=== PATIENT | male | born 1955 | race Caucasian/White ===

== ENCOUNTER 2018-03-20 01:32 | Emergency (ER) | payer OTHER ==
[~2018-03-20] VITALS: Ht 182.9 cm; Wt 99.8 kg
[~2018-03-20 01:32] MED LIST: BENICAR HCT 201 EACH PO; CENTRUM ULTRA1 EAC1 PO; GLUCOSAMINE &1 EAC1 PO
[2018-03-20] MEDS ORDERED: PERCOCET 5-3251 EACH PO (05:29)
[2018-03-21] MEDS ORDERED: FLOMAX0.4 MG PO (10:16)
[2018-03-21] MEDS ORDERED: ONDANSETRON ODT8 MG PO (13:03)
[2018-03-21] MEDS ORDERED: KETOROLAC TROME10 MG PO (13:03)
== END 2018-03-20 05:51 | disposition home or self-care (01) ==
LOC: ED 01:32
DX: N20.1 Calculus of ureter (principal); N13.4 Hydroureter; I10 Essential (primary) hypertension; Z91.018 Allergy to other foods; Z79.899 Other long term (current) drug therapy
CPT/HCPCS: 74176; 80053; 81001; 83690; 85025; 96361; 96374; 96375; 96376; 99284-25; J1170; J2405; J7030

== ENCOUNTER 2018-03-21 10:05 | Emergency (ER) | payer OTHER ==
[~2018-03-21] VITALS: Ht 182.9 cm; Wt 99.8 kg
[~2018-03-21 10:05] MED LIST changes: +PERCOCET 5-3251 EACH PO
--- OUTSIDE RECORDS SUMMARY | 2018-03-21 10:10 | XMS ---
PreManage Notification: BEE ARAUJO Security Nursing Student Events No recent Security Events currently on file CRITERIA MET - [facility] - 2 Visits in 30 Days CARE PROVIDERS Mary Kate Gonzalez PA-C Treatment Current PHONE: Unknown PCP_Unattributed Primary Care Current PHONE: Unknown Mike has no Care Guidelines for this patient. ETiki VISIT COUNT (12 MO.) 2 [facility] TOTAL 2 NOTE: Visits indicate total known visits. ED/UCC VISIT TRACKING (12 MO.) 03/21/2018 10:06 [facility] [place] TYPE: Emergency COMPLAINT: - ABD PAIN 03/20/2018 01:33 [facility] [place] TYPE: Emergency COMPLAINT: - L FLANK PAIN,NON INJURY INPATIENT VISIT TRACKING (12 MO.) No inpatient visits to display in this time frame [email or web address]
[2018-03-21] MEDS ORDERED: FLOMAX0.4 MG PO (10:16)
[2018-03-21] MEDS ORDERED: KETOROLAC TROME10 MG PO (13:03)
[2018-03-21] MEDS ORDERED: ONDANSETRON ODT8 MG PO (13:03)
[2018-03-22] MEDS ORDERED: PROMETHAZINE HC25 M1 PO (06:40)
[2018-03-22] MEDS ORDERED: PHENERGAN25 MG PR (06:40)
== END 2018-03-21 13:25 | disposition home or self-care (01) ==
LOC: ED 10:05
DX: N20.0 Calculus of kidney (principal); I10 Essential (primary) hypertension; Z87.442 Personal history of urinary calculi; Z90.49 Acquired absence of other specified parts of digestive tract; Z91.018 Allergy to other foods; Z79.899 Other long term (current) drug therapy
CPT/HCPCS: 81001; 96361; 96374; 96375; 96376; 99284-25; J1170; J1885; J2060; J2405; J7030

== ENCOUNTER 2018-03-22 04:13 | Emergency (ER) | payer OTHER ==
[~2018-03-22] VITALS: Ht 182.9 cm; Wt 100.0 kg
[~2018-03-22 04:13] MED LIST changes: +FLOMAX0.4 MG PO; +KETOROLAC TROME10 MG PO; +ONDANSETRON ODT8 MG PO
--- OUTSIDE RECORDS SUMMARY | 2018-03-22 04:18 | XMS ---
PreManage Notification: BEE ARAUJO Security [employer] Events No recent Security Events currently on file CRITERIA MET - [facility] - 2 Visits in 30 Days CARE PROVIDERS CATRACHITO SHAY [facility] 03/21/2018-Current PHONE: Unknown Mary Kate Gonzalez PA-C Treatment Current PHONE: Unknown PCP_Unattributed Primary Care Current PHONE: Unknown Mike has no Care Guidelines for this patient. ETiki VISIT COUNT (12 MO.) 3 [facility] TOTAL 3 NOTE: Visits indicate total known visits. ED/UCC VISIT TRACKING (12 MO.) 03/22/2018 04:13 [facility] [place] TYPE: Emergency COMPLAINT: - VOMITING 03/21/2018 10:06 [facility] [place] TYPE: Emergency COMPLAINT: - ABD PAIN 03/20/2018 01:33 [facility] [place] TYPE: Emergency COMPLAINT: - L FLANK PAIN,NON INJURY INPATIENT VISIT TRACKING (12 MO.) No inpatient visits to display in this time frame [email or web address]
[2018-03-22] MEDS ORDERED: PROMETHAZINE HC25 M1 PO (06:40)
[2018-03-22] MEDS ORDERED: PHENERGAN25 MG PR (06:40)
== END 2018-03-22 07:15 | disposition home or self-care (01) ==
LOC: ED 04:13
DX: N20.1 Calculus of ureter (principal); I10 Essential (primary) hypertension; Z87.442 Personal history of urinary calculi; Z90.49 Acquired absence of other specified parts of digestive tract; Z91.018 Allergy to other foods; Z79.899 Other long term (current) drug therapy
CPT/HCPCS: 96374; 96375; 99283-25; J1885; J2550; J7030

== ENCOUNTER 2018-09-08 07:37 | Day surgery (SDC) | payer OTHER ==
[~2018-09-08] VITALS: Ht 182.9 cm; Wt 102.1 kg
[~2018-09-08 07:37] MED LIST changes: +PHENERGAN25 MG PR; +PROMETHAZINE HC25 M1 PO
--- NOTE | 2018-09-08 09:05 | NUR ---
09/08/18 0905 Alsiia Chester 0902- PT ARRIVES TO PACU EASILY AROUSABLE TO VOICE. RESP EVEN AND UNLABORED. OXYGEN SAT MID 90'S ON 20 VIA NC. OXYGEN TITRATED TO OFF. OXYGEN SAT LOW TO MID 90'S ON RA. 0904- PT PASSING FLATUS.
--- NOTE | 2018-09-10 16:02 | OR ---
[facility] [address], [place] [address] Signed DATE OF OPERATION: 09/08/2018 SURGEON: Ronda Amin MD PREOPERATIVE DIAGNOSES: 1. Episodic rectal bleeding. 2. History of tubular adenoma at rectosigmoid, 2016. POSTOPERATIVE DIAGNOSES: 1. Sigmoid diverticulosis. 2. Polyps x2 (cecal and at 45 cm). 3. Minimal internal hemorrhoidal changes. PROCEDURE PERFORMED: Total colonoscopy to cecum with cold morcellation polypectomy x2. ANESTHESIA: Intravenous sedation fentanyl 150 mcg and Versed 6 mg. INDICATION: This 62-year-old white man remains a patient of Dr. Pio Shay. He underwent colonoscopy and had a tubular adenoma in 2016 at the rectosigmoid and hyperplastic polyp of the sigmoid itself. He has had no bleeding, diarrhea or constipation. It is noted that he does have celiac disease. He was seen to have a small amount of bleeding 3-4 months ago, which he attributed to hemorrhoids. He has no family history of colon cancer. He is admitted at this time to undergo colonoscopy. He understands the risks of bleeding, infection, and perforation. FINDINGS: He had no sign of external hemorrhoidal disease. Retroflexed view did show some internal hemorrhoidal changes, but not much. He had diverticular change of the sigmoid. There were 2 small polyps, one at 45 cm, the other at the cecum, both were excised with cold morcellation technique. The remaining colon was normal. DESCRIPTION OF PROCEDURE: The patient was brought to the endoscopy suite and placed in lateral decubitus position, given intravenous sedation to the point of slurred speech and nystagmus. Digital rectal examination was normal. An Olympus video colonoscope was passed in the rectum and manipulated throughout the Electronically Signed By: RONDA AMIN MD 09/10/18 1602 PATIENT NAME: BEE ARAUJO OPERATIVE REPORT DATE OF : 55 REPORT #: [id number] PHYSICIAN: RONDA AMIN MD PCP: PIO SHAY DO REPORT IS CONFIDENTIAL AND NOT TO BE RELEASED WITHOUT AUTHORIZATION [facility] [address], [place] [address] Signed colon noting diverticular change of the sigmoid and left colon. Scope was ultimately advanced to the cecum. Biopsy forceps was used to elevate the mucosa behind the ileocecal valve. There was a small polyp of the cecum, at least it appeared to be on narrow band imaging. This was excised with cold morcellation technique. The scope was then withdrawn and examination throughout showed no sign of abnormality until approximately 45 cm from the anal verge. A small sessile polyp was noted. This was excised with cold morcellation technique. Further withdrawal of scope showed no other abnormality. Retroflexed view of the rectum showed some minimal internal hemorrhoidal changes but nothing acute and certainly no sign of fissure or other abnormality. The scope was removed. The patient was taken to recovery room in good condition. CONCLUDING DIAGNOSES: 1. Polyps x2. 2. Diverticulosis. PLAN: Recommend high-fiber diet. If recurrent bleeding, consideration will be made for hemorrhoidal banding in the office setting. MD NEREYDA Mar/MARY /[id number] cc: Pio Shay DO Copies: PIO SHAY DO ~ Electronically Signed By: RONDA AMIN MD 09/10/18 1602 PATIENT NAME: BEE ARAUJO OPERATIVE REPORT DATE OF : 55 REPORT #: [id number] PHYSICIAN: RONDA AMIN MD PCP: PIO SHAY DO REPORT IS CONFIDENTIAL AND NOT TO BE RELEASED WITHOUT AUTHORIZATION
== END 2018-09-08 10:10 | disposition home or self-care (01) ==
LOC: OPS 07:37
PROVIDERS: Surgery
PROC: 0DBE8ZZ Excision of Large Intestine, Via Natural or Artificial Opening Endoscopic (ICD-10-PCS; 2018-09-08)
PROC: 0DBH8ZZ Excision of Cecum, Via Natural or Artificial Opening Endoscopic (ICD-10-PCS; principal; 2018-09-08 08:30)
DX: D12.6 Benign neoplasm of colon, unspecified (principal); K64.8 Other hemorrhoids; K57.30 Diverticulosis of large intestine without perforation or abscess without bleeding; I10 Essential (primary) hypertension; E78.5 Hyperlipidemia, unspecified; Z88.8 Allergy status to other drugs, medicaments and biological substances; Z79.899 Other long term (current) drug therapy; Z86.010 Personal history of colon polyps
CPT/HCPCS: 99153; G0500; J2250; J3010; J7120

== ENCOUNTER 2024-03-30 07:35 | Day surgery (SDC) | payer MEDICARE, OTHER ==
[~2024-03-30] VITALS: Ht 182.9 cm; Wt 95.5 kg
[~2024-03-30 07:35] MED LIST changes: +CALCIPOTRIENE60 G3 TP; +CENTRUM SILVER1 EAC7 PO; +FLUOROURACIL40 GM TOP; +IBLOOD GLUCOSE TEST STRIP 1 EA TEST VI PRN; +LACTATED RINGER'S 1,000 ML IV SCH; +LIDOCAINE HCL 1% 5 ML SDV INJ ONE; +MIDAZOLAM HCL 5 MG/5 ML VIAL IV PRN; +TRIBENZOR 40-11 EAC1 PO; +fentaNYL citrate 100 MCG/2 ML VIAL IV PRN
[2024-03-30 07:54] VITALS: BP 145/77
--- NOTE | 2024-03-30 08:09 | NUR ---
PT NOT AVAILABLE FOR VISIT. PROVIDED PRAYER.
--- NOTE | 2024-03-30 08:30 | NUR ---
PT LAYIHNG IN BED WATCHING TV. UPDATE ON SURGERY TIME. NO OTHER NEEDS AT THIS TIME. CALL LIGHT WITHIN REACH.
[2024-03-30] MEDS ORDERED: MIDAZOLAM HCL 5 MG/5 ML VIAL ONE (08:37)
[2024-03-30] MEDS ORDERED: fentaNYL citrate 100 MCG/2 ML VIAL ONE (08:37)
--- NOTE | 2024-03-30 09:35 | NUR ---
03/30/24 0935 Quin Gamboa 0922-PT ARRIVES TO PACU RESTING ON HIS LT SIDE, PT RESPONISVE TO STIMULI BUT RESTING W/ EYES CLOSED, VSS ON 3L VIA NC, RR EVEN AND UNLABORED. 0933-PT AWAKENS TO VOICE, PT DENIES PAIN OR NAUSEA, O2 TITRATED TO 1L VS REMAIN STABLE, RR EVEN AND UNLABORED. PT ENCOURAGED TO PASS GAS.
[2024-03-30 10:01] VITALS: BP 117/72
--- NOTE | 2024-03-30 20:53 | OR ---
[facility] [address], [place] [address] Signed DATE OF OPERATION: 03/30/2024 SURGEON: Ronda Amin MD PREOPERATIVE DIAGNOSIS: History of polyps in 2019. POSTOPERATIVE DIAGNOSES: 1. Questionable polyp versus hyperplasia of cecum. 2. HX OF GRANULOMA ANNULARE PROCEDURE: Total colonoscopy to cecum with cold morcellation polypectomy x1. ANESTHESIA: Intravenous sedation; fentanyl 100 mcg and Versed 7 mg. INDICATION: This 68-year-old white man is a patient of Dr. Brett Rapp. He underwent colonoscopy by [facility] in 2019 where he was found to have two polyps, one on the cecum and the other at 45 cm as well as internal hemorrhoidal changes. Pathology report confirmed a tubular adenoma at 45 cm but no abnormality of the cecal lesion. He has no current symptoms of bleeding, diarrhea, or constipation. He is admitted to undergo colonoscopy for surveillance at this time. FINDINGS: The prep was excellent. Complete colonoscopy was undertaken to the cecum. There was an area of hyperplasia or polyp in the cecum once again, this was excised. The remaining colon was essentially normal except for scattered diverticula of the sigmoid. Additionally noted, however, were extensive cutaneous lesions initially suggestive of tinea corpora but which were later noted to have been evaluated and treated and biopsied confirming a diagnosis of granuloma annulare; lesions were exensive and not to be on the back, hands and elsewhere. He remains under the ongoing care of a edger operator in [place]. DESCRIPTION OF PROCEDURE: The patient was brought to the endoscopy suite and given intravenous sedation to the point of slurred speech and nystagmus with full cardiopulmonary monitoring. Digital rectal examination was normal. Electronically Signed By: RONDA AMIN MD 03/30/242052 PATIENT NAME: BEE ARAUJO OPERATIVE REPORT DATE OF : 55 REPORT #: [id number] PHYSICIAN: RONDA AMIN MD PCP: BRETT RAPP MD REPORT IS CONFIDENTIAL AND NOT TO BE RELEASED WITHOUT AUTHORIZATION [facility] [address], [place] [address] Signed An Olympus video colonoscope was passed in the rectum and manipulated throughout the colon ultimately intubating the cecum itself. The ileocecal valve and appendiceal orifice were normal. There was a small area of either hyperplasia or small polyp of the cecum, which was excised with cold morcellation technique. Scope was further withdrawn and examination showed no other abnormality other than scattered diverticula of the sigmoid. Retroflexed view was normal. Scope was removed. The anesthesia monitoring nurse noted a small lesion dorsum of his left hand. Further inspection showed this to be a lesion consistent with tinea corporis and examination of his back and elsewhere showed extensive lesions highly typical of tinea corporis. Subsequent discussion with the patient and his confirmed that he had dermatologice evaluation in [place] who biopsied the lesions and found them to be granuloma annulare ( a mimic of tinea) and he maintains follow up with the edger operator on a routine basis. MD NEREYDA Mar/MARY /[id number] cc: Brett Rapp MD Copies: BRETT RAPP MD ~ Electronically Signed By: RONDA AMIN MD 03/30/242052 PATIENT NAME: BEE ARAUJO OPERATIVE REPORT DATE OF : 55 REPORT #: [id number] PHYSICIAN: RONDA AMIN MD PCP: BRETT RAPP MD REPORT IS CONFIDENTIAL AND NOT TO BE RELEASED WITHOUT AUTHORIZATION
--- NOTE | 2024-03-31 12:37 | PATH ---
[facility] [address] [place], [place] [address] Signed SPECIMEN(S): A CECUM BIOPSY SPECIMEN SOURCE: A. CECUM BIOPSY CLINICAL HISTORY: 2019 tubular adenoma at 45 cm, possible cecal polyp, diverticuli FINAL PATHOLOGIC DIAGNOSIS: Cecum, biopsy: - Colonic mucosa with no significant pathologic changes BRP MICROSCOPIC EXAMINATION: Histologic sections of all submitted blocks are examined by light microscopy. These findings, together with the gross examination, support the pathologic diagnosis. GROSS DESCRIPTION: The specimen, labeled and designated "Dorcas, cecum biopsy," is received in formalin and consists of two mazariegos soft tissue fragments, ranging from 0.3-0.4 cm. Entirely submitted in (A1). VB (under the direct supervision of a pathologist) The Gross Description was prepared using a voice recognition system. The report was reviewed for accuracy; however, sound-alike word errors, addition and/or deletions may occur. If there is any question about this report, please contact Client Services. ADDITIONAL NOTES: Immunohistochemical and/or in situ hybridization studies if performed in this case included appropriate positive controls that reacted as expected. This test was developed and its performance characteristics determined by [employer]. It has not been cleared or approved by the U.S. Food and Drug Administration. The FDA has determined that such clearance or approval is not necessary. This test is used for clinical purposes. It should not be regarded as investigational or for research. [employer] [facility] [employer] is certified under the Clinical Laboratory Improvement Amendments of 1988 (CLIA) as qualified to perform high complexity clinical laboratory testing. PATIENT NAME: BEE ARAUJO PATHOLOGY DATE OF : 55 REPORT #: [id number] PHYSICIAN: ADAIR LEROY PCP: BRETT SMILEY MD REPORT IS CONFIDENTIAL AND NOT TO BE RELEASED WITHOUT AUTHORIZATION [address] [place], [place] [address] Signed PERFORMING LABORATORY: Technical component was performed [place] [address] (CLIA# [id number]). Professional interpretation was performed by [facility] [place] [address] (CLIA#: [id number]). Diagnostician: Ham Sandoval MD Pathologist Electronically Signed 03/31/2024 Copies: ~ PATIENT NAME: BEE ARAUJO PATHOLOGY DATE OF : 55 REPORT #: [id number] PHYSICIAN: ADAIR LEROY PCP: BRETT SMILEY MD REPORT IS CONFIDENTIAL AND NOT TO BE RELEASED WITHOUT AUTHORIZATION
== END 2024-03-30 10:15 | disposition home or self-care (01) ==
LOC: DS 07:35
PROVIDERS: ATTEND Surgery
PROC: 0DBH8ZZ Excision of Cecum, Via Natural or Artificial Opening Endoscopic (ICD-10-PCS; principal; 2024-03-30 08:30)
DX: Z12.11 Encounter for screening for malignant neoplasm of colon (principal); K64.8 Other hemorrhoids; K90.0 Celiac disease; E78.5 Hyperlipidemia, unspecified; I10 Essential (primary) hypertension; Z86.0101 Personal history of adenomatous and serrated colon polyps
CPT/HCPCS: 88305; 99153; G0500; J2250; J3010; J7121